=== PATIENT | male | born 1975 | race Caucasian/White ===

== ENCOUNTER → 2021-06-07 | Day surgery (SDC) | payer BC ==
[~2021-06-07] VITALS: Ht 185.4 cm; Wt 151.3 kg
[~2021-06-07] MED LIST: GABA300C18 PO; HYDROmorphone 2 MG/ML INJ. IVP PRN; IV RINGERS,LACTATED 1000ML 1,000 ML IV SCH; LEXAPRO20 MG PO; LIDOCAINE 2% PF 5 ML VIAL. ONE; LISI-130 PO; METF10007 PO; MORPHINE SULFATE 2 MG/ML INJ. IVP PRN; PROCHLORPERAZINE 10 MG/2 ML VIAL. IVP PRN; PROPOFOL 10 MG/ML (20ML) VIAL. IV ONE; fentaNYL PF VIAL 100 MCG/2 ML VIAL IVP PRN
[2021-06-07 08:04] VITALS: BP 155/79
[2021-06-07 09:25] VITALS: BP 118/59
--- NOTE | 2021-06-07 13:19 | CONS ---
DATE OF CONSULTATION: 06/07/2021 UPDATED HISTORY AND PHYSICAL REFERRING PHYSICIAN: Sera Gutierrez. REASON: History of colonic polyps and family history of colon cancer. HISTORY OF PRESENT ILLNESS: A 45-year-old male whose past medical history is significant for colon polyps and sleep apnea, is seen for interval colon exam. Last exam was done approximately 20 years ago, which did reveal polyps at that time. Stools are formed without diarrhea or constipation. Weight and appetite are stable. There has been no melena and/or hematochezia. Family history is positive for colon cancer with grandparent. He is otherwise without additional complaints. PAST MEDICAL HISTORY: Sleep apnea, diabetes, history of colon polyps. ALLERGIES: None. MEDICATIONS: Lexapro, gabapentin, lisinopril, and metformin. FAMILY HISTORY: breast cancer, colon polyps with father and grandfather colorectal cancer. Diabetes with mother. Hypertension in multiple family members. SOCIAL HISTORY: Nonsmoker and nondrinker. PAST SURGICAL HISTORY: Noncontributory. MEDICATIONS: Include Lexapro, gabapentin, lisinopril, metformin. REVIEW OF SYSTEMS: Per records. PHYSICAL EXAMINATION: GENERAL: Reveals a well-nourished, well-developed male, who is alert, cooperative, in no acute distress. VITAL SIGNS: Temperature 97.9, pulse 87, respiratory rate 22. LUNGS: Clear. CARDIOVASCULAR: Reveals an S1, S2, without S3, S4 or appreciable murmur. ABDOMEN: Reveals a soft abdomen, normal bowel sounds, without appreciable hepatosplenomegaly. EXTREMITIES: Reveals no cyanosis, clubbing or edema. IMPRESSION AND PLAN: History of colon polyps and colon cancer. Interval exam is recommended. Risks and benefits of procedure and risk of hemorrhage and perforation with operation were discussed. The patient is willing to proceed. SAMI DR: Portia TID: [id number]
== END | disposition home or self-care (01) ==
LOC: ENDOS 07:34
PROVIDERS: ATTEND Internal Medicine Gastroenterology
DX: Z12.11 Encounter for screening for malignant neoplasm of colon (principal); K64.0 First degree hemorrhoids; K63.89 Other specified diseases of intestine; G47.30 Sleep apnea, unspecified; E11.9 Type 2 diabetes mellitus without complications; I10 Essential (primary) hypertension; E78.00 Pure hypercholesterolemia, unspecified; K21.9 Gastro-esophageal reflux disease without esophagitis; F41.9 Anxiety disorder, unspecified; F32.9 Major depressive disorder, single episode, unspecified; Z86.010 Personal history of colon polyps; Z80.0 Family history of malignant neoplasm of digestive organs; Z79.84 Long term (current) use of oral hypoglycemic drugs; Z79.899 Other long term (current) drug therapy
CPT/HCPCS: 45378; J2704